=== PATIENT | male | born 1955 | race Caucasian/White ===

== ENCOUNTER 2018-07-30 12:42 | Emergency (ER) | payer OTHER, SELFPAY | END 2018-07-30 13:20 | disposition home or self-care (01) | LOC: NAV ERS 12:42 | DX: K02.9 Dental caries, unspecified (principal); I25.10 Atherosclerotic heart disease of native coronary artery without angina pectoris; I25.2 Old myocardial infarction; I10 Essential (primary) hypertension; F17.210 Nicotine dependence, cigarettes, uncomplicated; Z79.82 Long term (current) use of aspirin; Z79.899 Other long term (current) drug therapy | CPT/HCPCS: 99282 ==

== ENCOUNTER 2020-05-17 16:55 | Emergency (ER) | payer MEDICARE, OTHER, SELFPAY ==
[2020-05-17] MEDS ORDERED: Boostrix 0.5 ML (Tdap) VIAL ONE (17:16)
--- NOTE | 2020-05-17 17:51 | CT ---
CT head noncontrast HISTORY: Fall. Injury. FINDINGS: There is no evidence of acute intracranial hemorrhage or infarct. Ventricles are unremarkab le. 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 A 0.4 cm oval lipoma sits immediately left of the torcula Herophili. There is no mass effect or shift of midline structures. Soft tissue swelling and a small amount of deep subcutaneous gas overlies the left frontal scalp. The inferior most images show fluid within the left maxillary sinus. Only partially visualized. IMPRESSION : No acute intracranial abnormalities are demonstrated. Fluid within the partially visualized left maxillary sinus. Correlate for left maxillary sinusitis ve rsus recent sinus fracture.
--- NOTE | 2020-05-17 17:55 | CT ---
CT cervical spine noncontrast HISTORY: Fall. Neck injury. FINDINGS: Mild gentle reversal of the normal lordotic curvature. Vertebral body heights are maintaine d. Prominent osteophytosis throughout the vertebral bodies and facets. Central canal and foraminal steno ses most severe at the C5-6 level. Cervicothoracic junction is intact. No acute fracture or dislocation. The superiormost images show mucosal thickening and air-fluid levels within each maxillary sinus. IMPRESSION : No acute osseous abnormalities are demonstrated. Bilateral maxillary sinusitis.
[2020-05-17] MEDS ORDERED: Lidocaine 1% (PF) 30 ML VIAL ONE (18:06)
== END 2020-05-17 18:35 | disposition home or self-care (01) ==
LOC: NAV ERS 16:55
DX: S01.112A Laceration without foreign body of left eyelid and periocular area, initial encounter (principal); I25.2 Old myocardial infarction; I10 Essential (primary) hypertension; F17.210 Nicotine dependence, cigarettes, uncomplicated; Z79.82 Long term (current) use of aspirin; W00.0XXA Fall on same level due to ice and snow, initial encounter
CPT/HCPCS: 12013; 70450; 72125; 90471; 90715; J2001

== ENCOUNTER 2020-06-15 16:06 | Emergency (ER) | payer MEDICARE | END 2020-06-15 17:05 | disposition home or self-care (01) | LOC: NAV ERS 16:06 | DX: S01.112D Laceration without foreign body of left eyelid and periocular area, subsequent encounter (principal); I25.2 Old myocardial infarction; I25.10 Atherosclerotic heart disease of native coronary artery without angina pectoris; I10 Essential (primary) hypertension; F17.210 Nicotine dependence, cigarettes, uncomplicated ==

== ENCOUNTER 2021-06-20 13:39 | Emergency (ER) | payer MEDICARE, SELFPAY ==
[2021-06-20 14:30] LABS: #Eosinphils 0.1 thou/uL (0.0-0.7); #Lymphocytes 2.9 thou/uL (1.20-3.40); #Monocytes 0.6 thou/uL (0.11-0.59); #Neutrophils 2.7 thou/uL (1.40-6.50); %Basophils 0.8 % (0.0-1.0); %Lymphocytes 44.9 % (21.0-51.0); %Monocytes 9.9 % (0.0-10.0); %Neutrophils 42.5 % (42.0-75.0); Hemoglobin 14.7 g/dL (14.0-18.0); Mean Corpuscular HGB CONC 34.1 g/dL (32.0-36.0); Mean Corpuscular Hemoglobin 35.6 pg (27.0-31.0); Mean Platelet Volume 6.7 fL (7.4-10.4); Platelet Count 150 thou/uL (130-400); Red Blood Cell (RBC) Count 4.13 mill/uL (4.70-6.10); White Blood Cell (WBC) Count 6.4 thou/uL (4.8-10.8)
[2021-06-20 14:36] LABS: Bilirubin Small (Negative); Blood, Urine Negative (Negative); Clarity Clear (Clear); Glucose, Urine (Dipstick) Negative (Negative); Ketone, Urine 15 mg/dL (Negative); Leukocyte Negative (Negative); Nitrite Negative (Negative); Protein, Urine (Dipstick) 30 mg/dL (Neg-Trace)
[2021-06-20] MEDS ORDERED: Ondansetron PF 4 MG/2 ML Vial ONE (14:39)
[2021-06-20 14:44] LABS: Calcium Oxalate Crystals 2+ HPF (None Seen); RBC/HPF 0-3 HPF (0-3); Squamous Epithelial 0-3 HPF (0-3); WBC/HPF 0-3 HPF (0-3)
[2021-06-20 14:47] LABS: Platelet Morphology Comment Appears Adequate; RBC Morphology Normal
[2021-06-20 14:50] LABS: Specific Gravity, Urine 1.032 (1.002-1.036)
[2021-06-20 14:50] LABS: ALT (SGPT) 21 U/L (8-55); AST (SGOT) 39 U/L (5-34); Albumin 3.7 g/dL (3.4-4.8); Alkaline Phosphatase 96 U/L (40-110); Anion Gap 13 mmol/L (10-20); BUN (Urea Nitrogen) 10 mg/dL (8.4-25.7); Bilirubin, Total 0.4 mg/dL (0.2-1.2); Calc. Creatinine Clearance 0 mL/min (70-130); Calcium 8.7 mg/dL (7.8-10.44); Carbon Dioxide 24 mmol/L (23-31); Chloride 106 mmol/L (98-107); Globulin 3.1 g/dL (2.4-3.5); Glucose 90 mg/dL (80-115); Lipase 38 U/L (8-78); Potassium 3.5 mmol/L (3.5-5.1); Protein, Total 6.8 g/dL (5.8-8.1); Sodium 139 mmol/L (136-145)
== END 2021-06-20 15:15 | disposition left against medical advice (07) ==
LOC: NAV ERS 13:39
DX: R10.31 Right lower quadrant pain (principal); R11.2 Nausea with vomiting, unspecified; I10 Essential (primary) hypertension; I25.10 Atherosclerotic heart disease of native coronary artery without angina pectoris; I25.2 Old myocardial infarction; F17.210 Nicotine dependence, cigarettes, uncomplicated; Z95.5 Presence of coronary angioplasty implant and graft
CPT/HCPCS: 71045; 80053; 81003; 81015; 83690; 84484; 85025; 94760; 96374; J2405